=== PATIENT | male | born 1975 | race Two or more races ===

== ENCOUNTER 2017-01-22 08:46 | Inpatient (IN) | payer MEDICAID ==
[~2017-01-22] VITALS: Ht 170.2 cm; Wt 89.2 kg
[2017-01-22] VITALS (11 sets, daily range): BP systolic 98–126; BP diastolic 48–72
[2017-01-22] MEDS ORDERED: FAMOTIDINE 20 MG/2 ML ONE (09:09)
[2017-01-22] MEDS ORDERED: ONDANSETRON 2MG/ML, 2ML ONE (09:09)
[2017-01-22] MEDS ORDERED: MORPHINE SULFATE 4 MG/ML, 1ML ONE (09:12)
[2017-01-22] MEDS ORDERED: PANTOPRAZOLE 80 MG in SODIUM CHLORIDE 0.9% 50 ML IVPB ONE (09:30)
[2017-01-22] MEDS ORDERED: FAMOTIDINE 20 MG/2 ML IVPush ONE (09:30)
[2017-01-22] MEDS ORDERED: SODIUM CHLORIDE 0.9% 1,000ML IVBOLUS ONE (09:30)
[2017-01-22] MEDS ORDERED: SODIUM CHLORIDE FLUSH 10ML SYR IVF ONE (09:30)
[2017-01-22] MEDS ORDERED: ONDANSETRON 2MG/ML, 2ML IVPush ONE (09:30)
[2017-01-22] MEDS ORDERED: morphine SULFATE 10 MG/ML, 1ML IVPush ONE (09:30)
[2017-01-22] MEDS ORDERED: ZINC220C5 PO (09:51)
[2017-01-22] MEDS ORDERED: FURO-93 PO (09:51)
[2017-01-22] MEDS ORDERED: SPIR25TA3 PO (09:51)
[2017-01-22] MEDS ORDERED: VITA10004 PO (09:51)
[2017-01-22] MEDS ORDERED: SODIUM CHLORIDE 0.9%, 500ML IVBOLUS ONE (10:00)
[2017-01-22] MEDS ORDERED: PANTOPRAZOLE 80 MG in SODIUM CHLORIDE 0.9% 100 ML IV SCH (10:00)
[2017-01-22 10:02] LABS: HEMATOCRIT 26.5 % (39.2-51.8); HEMOGLOBIN 9.1 g/dL (13.7-18.0); WHITE BLOOD COUNT 15.8 x10^3/uL (3.4-10)
[2017-01-22 10:15] LABS: ASPARTATE AMINO TRANSFERASE 91 U/L (15-37); BLOOD UREA NITROGEN 10 mg/dL (7-18)
[2017-01-22] MEDS ORDERED: OCTREOTIDE 500 MCG in SODIUM CHLORIDE 0.9% 249 ML IV SCH (10:30)
[2017-01-22 10:50] LABS: DIFF TOTAL CELLS COUNTED 100 CELL DIFF
[2017-01-22 10:52] LABS: POLYCHROMASIA 1+; VERIFY COUNTS? YES
[2017-01-22 10:53] LABS: ANISOCYTOSIS 2+; POIKILOCYTOSIS 1+
[2017-01-22] MEDS ORDERED: ONDANSETRON 2MG/ML, 2ML IVPush PRN (13:00)
[2017-01-22] MEDS ORDERED: POLYETHYLENE GLYCOL 17 GM PACKET PO PRN (13:00)
[2017-01-22] MEDS ORDERED: TEMAZEPAM 15 MG CAPSULE PO PRN (13:00)
[2017-01-22] MEDS: PANTOPRAZOLE 80 MG in SODIUM CHLORIDE 0.9% 100 ML IV SCH ×2 (14:14→23:31)
[2017-01-22] MEDS: OCTREOTIDE 500 MCG in SODIUM CHLORIDE 0.9% 249 ML IV SCH ×2 (14:14→23:31)
[2017-01-22] MEDS ORDERED: MIDAZOLAM 1 MG/ML, 5ML ONE (14:33)
[2017-01-22] MEDS ORDERED: FENTANYL PF 100 MCG/2ML ONE (14:33)
[2017-01-22] MEDS ORDERED: FENTANYL PF 100 MCG/2ML IVPush ONE (15:30)
[2017-01-22] MEDS ORDERED: MIDAZOLAM 1 MG/ML, 2ML IVPush ONE (15:30)
[2017-01-22] MEDS: PHYTONADIONE 10 MG/ML, 1ML SQ SCH (15:55)
[2017-01-22] MEDS: SODIUM CHLORIDE 0.9% 1,000 ML IV SCH (18:42)
[2017-01-22] MEDS: CEFTRIAXONE PMX 1GM/50ML 50 ML IV SCH (18:42)
[2017-01-23] VITALS (20 sets, daily range): BP systolic 99–124; BP diastolic 42–65
[2017-01-23 06:24] LABS: BLOOD UREA NITROGEN 27 mg/dL (7-18)
[2017-01-23 06:29] LABS: ASPARTATE AMINO TRANSFERASE 120 U/L (15-37)
[2017-01-23] MEDS ORDERED: CALCIUM CHLORIDE 13.6 MEQ in SODIUM CHLORIDE 0.9% 100 ML IV ONE (07:00)
[2017-01-23 07:11] LABS: HEMATOCRIT 24.6 % (39.2-51.8); HEMOGLOBIN 8.3 g/dL (13.7-18.0); WHITE BLOOD COUNT 33.2 x10^3/uL (3.4-10)
[2017-01-23 07:12] LABS: DIFF TOTAL CELLS COUNTED 100 CELL DIFF
[2017-01-23 07:20] LABS: VERIFY COUNTS? YES
[2017-01-23 07:21] LABS: ANISOCYTOSIS 2+; HYPOCHROMIA 1+; POIKILOCYTOSIS 2+; POLYCHROMASIA 1+
[2017-01-23] MEDS: SENNA/DOCUSATE TABLET PO SCH (08:04)
[2017-01-23] MEDS: PHYTONADIONE 10 MG/ML, 1ML SQ SCH (08:04)
[2017-01-23] MEDS: SODIUM CHLORIDE 0.9% 1,000 ML IV SCH (08:05)
[2017-01-23] MEDS: OCTREOTIDE 500 MCG in SODIUM CHLORIDE 0.9% 249 ML IV SCH ×2 (09:24→18:47)
[2017-01-23] MEDS: PANTOPRAZOLE 80 MG in SODIUM CHLORIDE 0.9% 100 ML IV SCH ×2 (09:24→18:47)
[2017-01-23] MEDS ORDERED: MAGNESIUM SULFATE PMX 2GM/50ML 50 ML IV ONE (11:00)
[2017-01-23 20:43] LABS: HEMATOCRIT 25.2 % (39.2-51.8); HEMOGLOBIN 8.4 g/dL (13.7-18.0)
[2017-01-23] MEDS: CEFTRIAXONE PMX 1GM/50ML 50 ML IV SCH (21:53)
[2017-01-24 04:00] VITALS: BP 102/54
[2017-01-24 04:40] LABS: ASPARTATE AMINO TRANSFERASE 213 U/L (15-37); BLOOD UREA NITROGEN 48 mg/dL (7-18)
[2017-01-24] MEDS: PANTOPRAZOLE 80 MG in SODIUM CHLORIDE 0.9% 100 ML IV SCH ×2 (05:35→15:02)
[2017-01-24] MEDS: OCTREOTIDE 500 MCG in SODIUM CHLORIDE 0.9% 249 ML IV SCH ×2 (05:35→15:02)
[2017-01-24 06:15] LABS: HEMATOCRIT 24.1 % (39.2-51.8); HEMOGLOBIN 8.4 g/dL (13.7-18.0); WHITE BLOOD COUNT 15.5 x10^3/uL (3.4-10)
[2017-01-24 06:42] LABS: ANISOCYTOSIS 2+; POLYCHROMASIA 1+
[2017-01-24 06:43] LABS: OVALOCYTES 1+
[2017-01-24 06:44] LABS: ECHINOCYTES 1+
[2017-01-24] MEDS ORDERED: MIDAZOLAM 1 MG/ML, 5ML ONE (08:13)
[2017-01-24] MEDS ORDERED: FENTANYL PF 100 MCG/2ML ONE (08:13)
[2017-01-24] MEDS: SENNA/DOCUSATE TABLET PO SCH (09:00)
[2017-01-24] MEDS: PHYTONADIONE 10 MG/ML, 1ML SQ SCH (11:17)
[2017-01-24] MEDS: SODIUM CHLORIDE 0.9% 1,000 ML IV SCH (16:30)
[2017-01-24 18:55] VITALS: BP 108/50
[2017-01-24] MEDS: CEFTRIAXONE PMX 1GM/50ML 50 ML IV SCH (22:14)
[2017-01-25] MEDS: SODIUM CHLORIDE 0.9% 1,000 ML IV SCH ×3 (00:36→20:23)
[2017-01-25] MEDS: PANTOPRAZOLE 80 MG in SODIUM CHLORIDE 0.9% 100 ML IV SCH ×3 (00:36→21:39)
[2017-01-25] MEDS: OCTREOTIDE 500 MCG in SODIUM CHLORIDE 0.9% 249 ML IV SCH ×3 (00:36→20:30)
[2017-01-25 00:40] VITALS: BP 104/54
[2017-01-25 05:07] LABS: BLOOD UREA NITROGEN 54 mg/dL (7-18)
[2017-01-25 05:08] LABS: HEMATOCRIT 25.9 % (39.2-51.8); HEMOGLOBIN 8.8 g/dL (13.7-18.0); WHITE BLOOD COUNT 10.9 x10^3/uL (3.4-10)
[2017-01-25] MEDS: SENNA/DOCUSATE TABLET PO SCH (07:29)
[2017-01-25 09:49] VITALS: BP 110/68
[2017-01-25] MEDS: MIDODRINE 5 MG TABLET PO SCH ×3 (11:06→20:23)
[2017-01-25 15:46] VITALS: BP 118/76
[2017-01-25] MEDS: ALBUMIN HUMAN 25% 100 ML IV SCH ×2 (16:51→23:39)
[2017-01-25] MEDS: CEFTRIAXONE PMX 1GM/50ML 50 ML IV SCH (20:22)
[2017-01-25 20:33] VITALS: BP 114/75
[2017-01-26] MEDS: OCTREOTIDE 500 MCG in SODIUM CHLORIDE 0.9% 249 ML IV SCH ×2 (06:10→16:06)
[2017-01-26 08:17] LABS: BLOOD UREA NITROGEN 54 mg/dL (7-18)
[2017-01-26 08:23] LABS: HEMATOCRIT 23.8 % (39.2-51.8); HEMOGLOBIN 8.1 g/dL (13.7-18.0); WHITE BLOOD COUNT 10.2 x10^3/uL (3.4-10)
[2017-01-26] MEDS: SODIUM CHLORIDE 0.9% 1,000 ML IV SCH (08:30)
[2017-01-26] MEDS: MIDODRINE 5 MG TABLET PO SCH ×3 (09:00→23:51)
[2017-01-26] MEDS: ALBUMIN HUMAN 25% 100 ML IV SCH ×2 (09:00→16:06)
[2017-01-26] MEDS: PANTOPRAZOLE 80 MG in SODIUM CHLORIDE 0.9% 100 ML IV SCH (09:00)
[2017-01-26] MEDS: SENNA/DOCUSATE TABLET PO SCH (09:00)
[2017-01-26] MEDS: LACTULOSE 20 GM/30 ML UDC PO SCH ×3 (12:00→23:50)
[2017-01-26 13:06] LABS: ASPARTATE AMINO TRANSFERASE 81 U/L (15-37)
[2017-01-26 14:00] VITALS: BP 121/62
[2017-01-26 14:14] LABS: DIFF TOTAL CELLS COUNTED 100 CELL DIFF
[2017-01-26 14:16] LABS: ANISOCYTOSIS 2+; POIKILOCYTOSIS 1+; POLYCHROMASIA 1+; VERIFY COUNTS? YES
[2017-01-26] MEDS: PANTOPRAZOLE 40 MG IV IVPush SCH (16:07)
[2017-01-26] MEDS ORDERED: LORazepam 2 MG/ML, 1ML ONE (18:37)
[2017-01-26] MEDS ORDERED: LORazepam 2 MG/ML, 1ML IVPush ONE (19:00)
[2017-01-26 20:32] VITALS: BP 128/66
[2017-01-26] MEDS: CEFTRIAXONE PMX 1GM/50ML 50 ML IV SCH (21:13)
[2017-01-27] MEDS: ALBUMIN HUMAN 25% 100 ML IV SCH ×3 (00:27→16:00)
[2017-01-27 01:09] VITALS: BP 135/73
[2017-01-27] MEDS: OCTREOTIDE 500 MCG in SODIUM CHLORIDE 0.9% 249 ML IV SCH ×2 (01:19→11:15)
[2017-01-27] MEDS: PANTOPRAZOLE 40 MG IV IVPush SCH ×2 (03:44→15:30)
[2017-01-27] MEDS: LORazepam 2 MG/ML, 1ML IVPush PRN ×2 (03:55→05:47)
[2017-01-27 05:46] LABS: ASPARTATE AMINO TRANSFERASE 58 U/L (15-37); BLOOD UREA NITROGEN 56 mg/dL (7-18); HEMATOCRIT 23.7 % (39.2-51.8); HEMOGLOBIN 8.2 g/dL (13.7-18.0); WHITE BLOOD COUNT 9.5 x10^3/uL (3.4-10)
[2017-01-27] MEDS: LACTULOSE 20 GM/30 ML UDC PO SCH ×3 (05:48→16:00)
[2017-01-27 07:36] VITALS: BP 145/73
[2017-01-27] MEDS: SENNA/DOCUSATE TABLET PO SCH (08:37)
[2017-01-27] MEDS: MIDODRINE 5 MG TABLET PO SCH ×2 (08:37→16:00)
[2017-01-27 14:00] VITALS: BP 130/75
[2017-01-27] MEDS: morphine SULFATE 125 MG in SODIUM CHLORIDE 0.9% 237.5 ML IV PRN (17:18)
[2017-01-27] MEDS: PANTOPRAZOLE 80 MG in SODIUM CHLORIDE 0.9% 100 ML IV SCH (18:17)
[2017-01-27 19:13] VITALS: BP 118/76
[2017-01-28 01:00] VITALS: BP 108/70
[2017-01-28] MEDS ORDERED: SCOPOLAMINE PATCH, 1.5MG PATCH.TD72 TD ONE (01:30)
[2017-01-28] MEDS: morphine SULFATE 125 MG in SODIUM CHLORIDE 0.9% 237.5 ML IV PRN ×2 (04:00→18:51)
[2017-01-28] MEDS ORDERED: ATROPINE OPHTH SOLN 1%, 2ML MM PRN (09:00)
[2017-01-28] MEDS ORDERED: PHYTONADIONE 10 MG in SODIUM CHLORIDE 0.9% 50 ML IV ONE (11:00)
[2017-01-28] MEDS: LORazepam 2 MG/ML, 1ML IVPush PRN ×2 (11:28→14:43)
== END 2017-01-29 00:28 | disposition expired | DRG 368 ==
LOC: ED 10:59 → EDIP 11:00 → ED 11:13 → CCU 13:11 → 5SO 01-24 18:42
PROVIDERS: ADMIT Internal Medicine; ATTEND Internal Medicine
PROC: 30233L1 Transfusion of Nonautologous Fresh Plasma into Peripheral Vein, Percutaneous Approach (ICD-10-PCS; 2017-01-22)
PROC: 30233L1 Transfusion of Nonautologous Fresh Plasma into Peripheral Vein, Percutaneous Approach (ICD-10-PCS; 2017-01-22)
PROC: 30233N1 Transfusion of Nonautologous Red Blood Cells into Peripheral Vein, Percutaneous Approach (ICD-10-PCS; 2017-01-22)
PROC: 06L34CZ Occlusion of Esophageal Vein with Extraluminal Device, Percutaneous Endoscopic Approach (ICD-10-PCS; principal; 2017-01-22 14:30)
PROC: 30233N1 Transfusion of Nonautologous Red Blood Cells into Peripheral Vein, Percutaneous Approach (ICD-10-PCS; 2017-01-23)
PROC: 30233K1 Transfusion of Nonautologous Frozen Plasma into Peripheral Vein, Percutaneous Approach (ICD-10-PCS; 2017-01-23)
PROC: 30233K1 Transfusion of Nonautologous Frozen Plasma into Peripheral Vein, Percutaneous Approach (ICD-10-PCS; 2017-01-23)
PROC: 0DJ08ZZ Inspection of Upper Intestinal Tract, Via Natural or Artificial Opening Endoscopic (ICD-10-PCS; 2017-01-24)
PROC: 02HV33Z Insertion of Infusion Device into Superior Vena Cava, Percutaneous Approach (ICD-10-PCS; 2017-01-25)
PROC: B5181ZA Fluoroscopy of Superior Vena Cava using Low Osmolar Contrast, Guidance (ICD-10-PCS; 2017-01-25)
DX: I85.11 Secondary esophageal varices with bleeding (principal); K22.6 Gastro-esophageal laceration-hemorrhage syndrome; N17.0 Acute kidney failure with tubular necrosis; K76.7 Hepatorenal syndrome; R57.9 Shock, unspecified; E43 Unspecified severe protein-calorie malnutrition; D68.59 Other primary thrombophilia; K22.10 Ulcer of esophagus without bleeding; D62 Acute posthemorrhagic anemia; D53.9 Nutritional anemia, unspecified; K70.31 Alcoholic cirrhosis of liver with ascites; E83.42 Hypomagnesemia; E83.51 Hypocalcemia; D72.823 Leukemoid reaction; E87.6 Hypokalemia; F10.21 Alcohol dependence, in remission; K44.9 Diaphragmatic hernia without obstruction or gangrene; K72.90 Hepatic failure, unspecified without coma; Z51.5 Encounter for palliative care; Z66 Do not resuscitate; Z82.49 Family history of ischemic heart disease and other diseases of the circulatory system; Z68.30 Body mass index [BMI] 30.0-30.9, adult; Z83.3 Family history of diabetes mellitus; Z87.891 Personal history of nicotine dependence
CPT/HCPCS: 36415; 36569; 71010; 76937; 77001; 80048; 80053; 81001; 82140; 82330; 82570; 83605; 83690; 83735; 84100; 84300; 85014; 85018; 85025; 85610; 85730; 86850; 86900; 86923; 87040; 87081; 87086; 93005; 96365; 96366; 96375; 99152; 99153; J0696; J2250; J2354; J2405; J3010; J3430; P9047; C1751; C9113; J2060; J2270; J3475; J7030; J7040; J7050; P9016; P9017; S0028